=== PATIENT | female | born 2005 | race Caucasian/White ===

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

== ENCOUNTER 2024-05-13 15:38 | Emergency (ER) | payer SELFPAY ==
--- NOTE | ~2024-05-13 | XR_ITS ---
EXAMINATION: XR ankle LT min 3V, XR foot LT min 3V DATE: 05/13/2024 16:30 INDICATION: Lateral sided left foot and ankle pain post fall TECHNIQUE: 1. Anteroposterior, mortise, additional oblique and lateral view of the left ankle were obtained. 2. Dorsoplantar, two oblique and lateral views of the left foot were obtained. COMPARISON: 01/04/2019 FINDINGS: Corticated margins at a now chronic nonunited avulsion fracture at the tip of the medial malleolus. N o acute fracture. There is some heterotopic ossification at the distal tibiofibular syndesmosis likel y sequela of chronic ankle sprain. Joint spaces are well maintained. No ankle joint effusion. Mild so ft tissue swelling about the lateral malleolus. IMPRESSION: 1. Old posttraumatic changes at the left ankle as detailed above. No acute osseous abnormality. Reviewed, dictated and finalized at location A. IMPRESSION: 1. Old posttraumatic changes at the left ankle as detailed above. No acute osse ous abnormality.
[2024-05-13 15:44] VITALS: BP 134/83; PULSE 97; RESP 17; TEMP 36.8; O2SAT 100
--- NOTE | 2024-05-13 16:15 | ED.LOWEXIN ---
HPI - Extremity Injury (Lower) General Chief Complaint: Extremity Injury, Lower Stated Complaint: left ankle injury 2 days ago Time Seen by Provider: 05/13/24 16:10 Focused HPI: Chanel is a 18-year-old female patient presenting to the emergency room with complaints of left lateral ankle/lateral pain after twisting it on a curb 2 nights ago. Having pain and swelling to the lateral ankle and foot. Is able to bear weight but it is painful General: Well-developed, well nourished, in no apparent distress Head: Normocephalic, atraumatic. Cardio: Regular rate and rhythm, s1 and s2 normal, no murmur appreciated. Resp: Clear to auscultation bilaterally, no rhonchi, rales, wheezing or rubs. Musculoskeletal: No deformity, mild swelling noted to the lower lateral ankle and lateral foot, tender to palpation over the lateral malleolus and the 5th metatarsal, pain with valgus and varus testing of the ankle and foot, grossly normal range of motion, muscle strength strong and equal, peripheral pulse strong, no cyanosis, limping gait and station Patient screened in triage and initial orders placed. Additional care and disposition to be based upon diagnostic testing and treatment. Source: patient Mode of arrival: ambulatory Limitations: no limitations Related Data Allergies Allergy/AdvReac Type Severity Reaction Status Date / Time No Known Allergies Allergy Mild Verified 05/13/24 15:38 PMFSH Social History Social History Smoking status: Current some day smoker Tobacco type: e-cigarettes/vaping Additional smoking assessment comments: VAPE ONLY Alcohol intake: never Substance use: current Substance use type: marijuana Living arrangements: with family Spiritual care concerns: No Comments At the time of my signature, I reviewed and agree with the nursing past medical, surgical, social, and family history. There is no relevant family history pertinent to the patient complaint. Exam Narrative: General: Well-developed, well nourished, in no apparent distress Head: Normocephalic, atraumatic. Cardio: Regular rate and rhythm, s1 and s2 normal, no murmur appreciated. Resp: Clear to auscultation bilaterally, no rhonchi, rales, wheezing or rubs. Musculoskeletal: No deformity, mild swelling noted to the lower lateral ankle and lateral foot, tender to palpation over the lateral malleolus and the 5th metatarsal, pain with valgus and varus testing of the ankle and foot, grossly normal range of motion, muscle strength strong and equal, peripheral pulse strong, no cyanosis, limping gait and station Course Course Emergency Course: Portions of this record may have been created with voice recognition software. Vital Signs Vital signs: Vital Signs Temperature 36.8 C 05/13/24 15:44 Pulse Rate 97 05/13/24 15:44 Respiratory Rate 17 05/13/24 15:44 Blood Pressure 134/83 05/13/24 15:44 Pulse Oximetry 100 05/13/24 15:44 Temperature 36.8 C 05/13/24 15:44 Pulse Rate 97 05/13/24 15:44 Respiratory Rate 17 05/13/24 15:44 Blood Pressure 134/83 05/13/24 15:44 Pulse Oximetry 100 05/13/24 15:44 Vital signs reviewed MDM - Extremity Injury (Lower) MDM Narrative Medical decision making narrative: At the time of visit patient is resting comfortably on the exam table. Patient appears to be nontoxic. Diagnostics: X-ray of the left ankle and foot were performed and were negative for any sign of fracture or malalignment. Plan: I suspect patient has a left ankle sprain/foot sprain. Toni wrap was given. Supportive measures were discussed with the patient and they voiced understanding discharge instructions and agrees to treatment plan. Return precautions reviewed Differential Diagnosis Differential diagnosis: Likely ankle sprain and strain, ankle fracture and other (Foot sprain, foot fracture, soft tissue injury) Imaging Data Radiologist's impr
== END 2024-05-13 17:11 | disposition home or self-care (01) ==
PROVIDERS: Emergency Provider Nurse Practitioner Family
DX: S93.402A Sprain of unspecified ligament of left ankle, initial encounter (principal); S93.602A Unspecified sprain of left foot, initial encounter; F17.290 Nicotine dependence, other tobacco product, uncomplicated; X50.9XXA Other and unspecified overexertion or strenuous movements or postures, initial encounter
CPT/HCPCS: 73610; 73630; 99283

== ENCOUNTER 2025-08-07 15:05 | Emergency (ER) | payer SELFPAY ==
--- OUTSIDE RECORDS SUMMARY | 2010-02-25 04:30 | XMS_ITS | Continuity of Care Document ---
Author Organization [facility] Address [address] [place] [address] Phone Care Team Providers Care It Application Administrator Name Role Phone Ward OD, Jason Unavailable Unavailable Procedures Procedure Date Eye Exam & Treatment Refraction Eye Exam, New Patient Refraction Advance Directives Directive Yes / No Effective Date File Name No Information Encounters Encounter Description Practice Location Reason(s) For Visit Diagnoses Date Provider Providers Copied on Encounter [facility], [address] [place] [address] [address], [place], [place], [id number], tel:[phone] [facility] No Information May-2 8-201 0 Ward OD Jason. [address], [place], [place], [facility], [place]. tel:[phone] [facility], [address] [place] [address] [address], [place], [place], [id number], tel:[phone] [facility] No Information May-0 8-200 9 Ward OD Jason. [address], [place], [place], [facility], [place]. tel:[phone] Family History Family Member Type Diagnosis Age At Onset No Information Payers Payer name Insurance type Covered republican ID Authoriza tion(s) Medicaid [facility] [id number] Social History Type Description Quantity Date Captured Comments Sex Female Smoking Status No Information Chief Complaint And Reason For Visit No Information Reason For Referral Reason For Referral No Information History Of Present Illness Encounter Date Complaint History Of Prese nt Illness No Information Functional Status Date Functional Assessmen t No Information Instructions Date Instruction Additional Infor mation No Information Assessments Type Assessment Date No Information Patient Care Teams Name Effective Dates (start - stop) Status Members No Information
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
[2025-08-07 15:20] VITALS: BP 126/79; PULSE 120; RESP 16; TEMP 36.8; O2SAT 100
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
--- NOTE | 2025-08-07 17:10 | PC.NURSE ---
CT made aware of IV and results.
[2025-08-07 17:11] LABS: BEDSIDEPREGUCG Negative (Negative)
[2025-08-07 19:46] VITALS: BP 129/95; PULSE 93; RESP 18; TEMP 37.2; O2SAT 100
== END 2025-08-07 20:10 | disposition home or self-care (01) ==
LOC: ANHED 20:01
PROVIDERS: Physician Assistant; Emergency Provider Family Medicine
DX: S80.01XA Contusion of right knee, initial encounter (principal); S29.9XXA Unspecified injury of thorax, initial encounter; F17.290 Nicotine dependence, other tobacco product, uncomplicated; V44.5XXA Car driver injured in collision with heavy transport vehicle or bus in traffic accident, initial encounter
CPT/HCPCS: 70450; 71260; 72125; 73564; 74177; 81025; 99284; Q9967